=== PATIENT | female | born 1990 | race Two or more races ===

== ENCOUNTER → 2024-05-11 | Outpatient (REF) | payer OTHER | LOC: M PLALAB 10:14 | PROVIDERS: ATTEND Advanced Practice Midwife | DX: Z34.01 Encounter for supervision of normal first pregnancy, first trimester (principal) ==

== ENCOUNTER → 2024-05-11 | Outpatient (CLI) | payer OTHER ==
[2024-05-11 15:06] LABS: HEMATOCRIT 36.3 % (36.0-47.0); HEMOGLOBIN 12.4 g/dl (12.0-15.5); MEAN CORPUSCULAR HEMOGLOBIN 31.4 pg (27.0-33.0); MEAN CORPUSCULAR HGB CONC 34.2 g/dl (32.0-36.5); MEAN CORPUSCULAR VOLUME 91.9 fl (80.0-96.0); PLATELET COUNT, AUTOMATED 334 10^3/uL (150-450); RED BLOOD COUNT 3.95 10^6/uL (4.00-5.40); WHITE BLOOD COUNT 10.5 10^3/uL (4.0-10.0)
[2024-05-11 15:53] LABS: HIV 1&2 SCREEN NEGATIVE (NEGATIVE)
[2024-05-11 16:02] LABS: HEPATITIS C VIRUS ABY INDEX < 0.02 INDEX (<0.8)
[2024-05-11 16:22] LABS: GC DNA AMPLIFICATION NEGATIVE (NEGATIVE)
== END ==
LOC: M PLALAB 10:39
PROVIDERS: ATTEND Advanced Practice Midwife
DX: Z34.01 Encounter for supervision of normal first pregnancy, first trimester (principal)

== ENCOUNTER → 2024-07-29 | Outpatient (CLI) | payer OTHER ==
[2024-07-29 12:53] LABS: GLUCOSE CHALLENGE TEST 1 HOUR 143 MG/DL (LESS THAN 140); HEMATOCRIT 34.7 % (36.0-47.0); HEMOGLOBIN 11.4 g/dl (12.0-15.5); MEAN CORPUSCULAR HEMOGLOBIN 32.4 pg (27.0-33.0); MEAN CORPUSCULAR HGB CONC 32.9 g/dl (32.0-36.5); MEAN CORPUSCULAR VOLUME 98.6 fl (80.0-96.0); PLATELET COUNT, AUTOMATED 308 10^3/uL (150-450); RED BLOOD COUNT 3.52 10^6/uL (4.00-5.40); WHITE BLOOD COUNT 14.3 10^3/uL (4.0-10.0)
[2024-07-29 13:29] LABS: HIV 1&2 SCREEN NEGATIVE (NEGATIVE)
[2024-07-29 13:36] LABS: HEPATITIS C VIRUS ABY INDEX < 0.02 INDEX (<0.8)
[2024-07-29 14:48] LABS: GC DNA AMPLIFICATION NEGATIVE (NEGATIVE)
== END ==
LOC: M PLALAB 09:19
PROVIDERS: ATTEND Specialist
DX: Z34.02 Encounter for supervision of normal first pregnancy, second trimester (principal); Z3A.00 Weeks of gestation of pregnancy not specified

== ENCOUNTER → 2024-07-29 | Outpatient (CLI) | payer OTHER | LOC: M WHC 07:58 | PROVIDERS: ATTEND Obstetrics & Gynecology | DX: Z34.82 Encounter for supervision of other normal pregnancy, second trimester (principal); Z3A.24 24 weeks gestation of pregnancy ==

== ENCOUNTER → 2024-08-12 | Outpatient (CLI) | payer OTHER | LOC: M LAB 07:48 | PROVIDERS: ATTEND Specialist | DX: Z34.02 Encounter for supervision of normal first pregnancy, second trimester (principal) ==

== ENCOUNTER → 2024-08-28 | Outpatient (CLI) | payer OTHER | LOC: M WHC 14:51 | PROVIDERS: ATTEND Obstetrics & Gynecology | DX: Z34.02 Encounter for supervision of normal first pregnancy, second trimester (principal); Z3A.29 29 weeks gestation of pregnancy ==

== ENCOUNTER → 2024-10-12 | Outpatient (CLI) | payer OTHER | LOC: M RAD 10:55 | PROVIDERS: ATTEND Nurse Practitioner Family | DX: O24.410 Gestational diabetes mellitus in pregnancy, diet controlled (principal); Z3A.35 35 weeks gestation of pregnancy ==

== ENCOUNTER → 2024-10-22 | Outpatient (REF) | payer OTHER | LOC: M SFHCWAGY 17:10 | PROVIDERS: ATTEND Nurse Practitioner Family | DX: Z34.03 Encounter for supervision of normal first pregnancy, third trimester (principal) ==

== ENCOUNTER → 2024-10-22 | Outpatient (REF) | payer OTHER | LOC: M PLALAB 15:45 | PROVIDERS: ATTEND Nurse Practitioner Family | DX: Z53.20 Procedure and treatment not carried out because of patient's decision for unspecified reasons (principal) ==

== ENCOUNTER 2024-11-05 13:05 | Inpatient (IN) | payer OTHER ==
[2024-11-05] VITALS (13 sets, daily range): BP systolic 105–150; BP diastolic 69–102
[~2024-11-05] VITALS: Ht 142.2 cm; Wt 55.3 kg
[2024-11-05] MEDS ORDERED: PRENTAB9 PO (13:20)
[2024-11-05] MEDS ORDERED: CARBOPROST TROMETHAMINE 250 MCG/ML AMP IM PRN (14:00)
[2024-11-05] MEDS ORDERED: OXYTOCIN DRIP 30 UNITS in IV 1 EA IV PRN (14:00)
[2024-11-05] MEDS ORDERED: METHYLERGONOVINE MALEATE 0.2MG/ML 1ML VIAL IM PRN (14:00)
[2024-11-05] MEDS ORDERED: TRANEXAMIC ACID INJection 1,000 MG in NS 100 ML IV PRN (14:00)
[2024-11-05 15:38] LABS: HEMATOCRIT 39.6 % (36.0-47.0); HEMOGLOBIN 13.5 g/dl (12.0-15.5); MEAN CORPUSCULAR HEMOGLOBIN 32.1 pg (27.0-33.0); MEAN CORPUSCULAR HGB CONC 34.1 g/dl (32.0-36.5); MEAN CORPUSCULAR VOLUME 94.3 fl (80.0-96.0); PLATELET COUNT, AUTOMATED 271 10^3/uL (150-450); WHITE BLOOD COUNT 16.9 10^3/uL (4.0-10.0)
[2024-11-05] MEDS: LR 1,000 ML IV SCH (16:45)
[2024-11-05] MEDS: OXYTOCIN DRIP 30 UNITS in IV 1 EA IV SCH (16:45)
[2024-11-05] MEDS: LACTATED RINGER'S 1000 ML IV PRN (17:45)
[2024-11-05] MEDS ORDERED: NALOXONE INJ 0.4MG/1ML VIAL IV PRN (17:50)
[2024-11-05] MEDS ORDERED: LR 500 ML IV PRN (17:50)
[2024-11-05] MEDS ORDERED: ePHEDrine SULFATE 25 MG/5 ML(5MG/ML) SYRINGE IVP PRN (17:50)
[2024-11-05] MEDS ORDERED: ONDANSETRON 4MG 2ML VIAL IV PRN (17:50)
[2024-11-05] MEDS ORDERED: diphenhydrAMINE 50MG/ML VIAL IV PRN (17:50)
[2024-11-05] MEDS ORDERED: EPIDURAL/PCA KEYS XX PRN (17:50)
[2024-11-05] MEDS: FENTANYL/ROPIVACAINE/NACL BAG 100 ML EPIDURAL SCH (17:54)
[2024-11-05] MEDS ORDERED: ceFAZolin 2 GM/D5W 50 ML IV BAG As Ordered ONE (23:32)
[2024-11-05] MEDS ORDERED: AZITHROMYCIN INJ 500MG VIAL As Ordered ONE (23:33)
[2024-11-05] MEDS ORDERED: BICITRA 30ML SOLN UDC As Ordered ONE (23:34)
[2024-11-05] MEDS ORDERED: BICITRA 30ML SOLN UDC PO ONE (23:35)
[2024-11-05] MEDS ORDERED: AZITHROMYCIN INJ 500 MG, VIAL MATE ADAPTER 1 EACH in NS 250 ML IV ONE (23:35)
[2024-11-05] MEDS ORDERED: ceFAZolin SOD 2 GM in IV 1 EA IV ONE (23:35)
[2024-11-05] MEDS ORDERED: ONDANSETRON 4MG 2ML VIAL As Ordered ONE (23:56)
[2024-11-05] MEDS ORDERED: fentaNYL 100 MCG/2 ML INJECTION As Ordered ONE (23:56)
[2024-11-05] MEDS ORDERED: PHENYLephrine 500MCG 5ML (100MCG/ML) SYRINGE As Ordered ONE (23:56)
[2024-11-05] MEDS ORDERED: LIDOCAINE 2% W/EPINEPHRINE 20ML VIAL **PRES FREE As Ordered ONE (23:56)
[2024-11-05] MEDS ORDERED: OXYTOCIN 30UNITS IN 0.9% NaCl 500ML IV BAG As Ordered ONE (23:56)
[2024-11-06] MEDS ORDERED: dexmedeTOMIDine (4MCG/ML)200MCG/50ML BTL (PRECEDEX) As Ordered ONE (00:05)
[2024-11-06] MEDS ORDERED: MORPHINE PRES-FREE INJ 10 MG/10 ML VIAL As Ordered ONE (00:10)
[2024-11-06] MEDS ORDERED: KETOROLAC 60MG 2ML VIAL As Ordered ONE (00:15)
[2024-11-06] MEDS ORDERED: oxyCODONE 5MG TAB PO PRN ×3 (00:50→01:00)
[2024-11-06] MEDS ORDERED: **NOTE PATIENT COMMENT** MISC XX SCH (00:50)
[2024-11-06] MEDS ORDERED: PERCOCET 5MG/325MG TAB PO PRN (00:50)
[2024-11-06] MEDS ORDERED: NALOXONE INJ 0.4MG/1ML VIAL IV PRN ×2 (00:50)
[2024-11-06] MEDS ORDERED: diphenhydrAMINE 50MG/ML VIAL IV PRN (00:50)
[2024-11-06] MEDS ORDERED: fentaNYL 100 MCG/2 ML INJECTION IV PRN (00:50)
[2024-11-06] MEDS ORDERED: MEPERIDINE 25 MG/ML 1ML VIAL IV PRN (00:50)
[2024-11-06] MEDS ORDERED: METOCLOPRAMIDE INJ 10MG/2ML VIAL IV PRN ×3 (00:50→01:00)
[2024-11-06] MEDS: SLF 3 ML SYR IV SCH (00:50)
[2024-11-06] MEDS ORDERED: ONDANSETRON 4MG 2ML VIAL IV PRN ×2 (00:50→01:00)
[2024-11-06] MEDS ORDERED: RHOGAM 300MCG (1500IU) INJ IM SCH (01:00)
[2024-11-06] MEDS ORDERED: DOCUSATE SODIUM 100MG CAPSULE PO PRN (01:00)
[2024-11-06] MEDS: OXYTOCIN DRIP 30 UNITS in IV 1 EA IV SCH (01:07)
[2024-11-06 01:09] LABS: CORD GAS HCO3 A 25.3 MMOL/L; CORD GAS O2 SAT A 29.6 %; CORD GAS PH A 7.297 UNITS; CORD GAS PO2 A 15.3 mmHg; CORD GAS SBC A 21.1 MMOL/L; CORD GAS TCO2 A 26.9 MMOL/L
[2024-11-06 01:10] LABS: CORD GAS ABE V -4.4; CORD GAS HCO3 V 21.3 MMOL/L; CORD GAS O2 SAT V 61.4 %; CORD GAS PCO2 V 41.5 mmHg; CORD GAS PH V 7.328 UNITS; CORD GAS TCO2 V 22.6 MMOL/L
[2024-11-06 02:23] VITALS: BP 97/63; O2SAT 95
[2024-11-06] MEDS: ACETAMINOPHEN 500 MG TAB PO SCH (02:48)
[2024-11-06] MEDS: KETOROLAC 30 MG/ML 1ML VIAL IV SCH (05:46)
[2024-11-06] MEDS: LR 1,000 ML IV SCH (05:47)
[2024-11-06 05:50] VITALS: BP 100/60; O2SAT 97
[2024-11-06] MEDS ORDERED: COLA100C5 PO (08:21)
[2024-11-06] MEDS ORDERED: ACET-683 PO (08:21)
[2024-11-06] MEDS ORDERED: OXYC-517 PO (08:21)
[2024-11-06] MEDS ORDERED: IBUP-1022 PO (08:21)
[2024-11-06] MEDS: PRENATAL VITAMINS CHEWABLE TABLET PO SCH (08:26)
[2024-11-06] MEDS: SIMETHICONE 80MG CHEW TAB PO PRN (08:26)
[2024-11-06 10:00] VITALS: BP 100/53; O2SAT 98
[2024-11-06] MEDS ORDERED: NIFEdipine 10 MG CAP PO ONE (12:25)
[2024-11-06 14:00] VITALS: BP 91/53; O2SAT 99
[2024-11-06 18:00] VITALS: BP 112/65; O2SAT 100
[2024-11-06 21:56] VITALS: BP 108/65; O2SAT 99
[2024-11-06] MEDS: IBUPROFEN 600MG TAB PO SCH (23:36)
[2024-11-07 02:00] VITALS: BP 104/65; O2SAT 99
[2024-11-07 06:00] VITALS: BP 105/59; O2SAT 99
[2024-11-07 06:33] LABS: HEMATOCRIT 28.7 % (36.0-47.0); HEMOGLOBIN 9.5 g/dl (12.0-15.5); MEAN CORPUSCULAR HEMOGLOBIN 32.3 pg (27.0-33.0); MEAN CORPUSCULAR HGB CONC 33.1 g/dl (32.0-36.5); MEAN CORPUSCULAR VOLUME 97.6 fl (80.0-96.0); PLATELET COUNT, AUTOMATED 202 10^3/uL (150-450); RED BLOOD COUNT 2.94 10^6/uL (4.00-5.40); WHITE BLOOD COUNT 11.2 10^3/uL (4.0-10.0)
[2024-11-07 09:15] VITALS: BP 105/59; TEMP 98.4; O2SAT 99
[2024-11-07 09:48] VITALS: BP 148/81; O2SAT 98
[2024-11-07 18:00] VITALS: BP 140/78; O2SAT 99
[2024-11-07 21:50] VITALS: BP 110/70; O2SAT 99
[2024-11-08 05:39] VITALS: BP 107/71; O2SAT 99
[2024-11-08] MEDS: MEASLES,MUMPS,RUBELLA VACCINE INJ (MMR-II) SC.IMMUN ONE (09:00)
[2024-11-08] MEDS ORDERED: IBUP-1022 PO (14:28)
== END 2024-11-08 13:50 | disposition home or self-care (01) | DRG 540 ==
LOC: M LDO 13:05 → M LDI 13:35 → M OBS 11-06 02:12
PROVIDERS: ADMIT Obstetrics & Gynecology; ATTEND Obstetrics & Gynecology
PROC: 10D00Z1 Extraction of Products of Conception, Low, Open Approach (ICD-10-PCS; principal; 2024-11-05 23:18)
DX: O32.4XX0 Maternal care for high head at term, not applicable or unspecified (principal); O77.1 Fetal stress in labor or delivery due to drug administration; Z37.0 Single live birth; Z3A.38 38 weeks gestation of pregnancy

== ENCOUNTER → 2025-03-18 | Outpatient (REF) | payer OTHER ==
[~2025-03-18] MED LIST: ACET-683 PO; COLA100C5 PO; IBUP-1022 PO; OXYC-517 PO; PRENTAB9 PO
[2025-03-21 08:32] LABS: HPV APTIMA Not Detected (Not Detected)
== END ==
LOC: M SFHCWAGY 10:39
PROVIDERS: ATTEND Obstetrics & Gynecology
DX: Z12.4 Encounter for screening for malignant neoplasm of cervix (principal)

== ENCOUNTER → 2025-09-03 | Outpatient (REF) | payer OTHER ==
[~2025-09-03] MED LIST changes: -IBUP-1022 PO; +IBUP600T42 PO
== END ==
LOC: M PLALAB 15:36
PROVIDERS: ATTEND Physician Assistant
DX: N61.1 Abscess of the breast and nipple (principal)

== ENCOUNTER → 2025-09-03 | Outpatient (CLI) | payer OTHER | LOC: M WHC 15:24 | PROVIDERS: ATTEND Physician Assistant | DX: N61.1 Abscess of the breast and nipple (principal) ==

== ENCOUNTER → 2025-09-13 | Outpatient (CLI) | payer OTHER | LOC: M WHC 13:11 | PROVIDERS: ATTEND Surgery | DX: N61.1 Abscess of the breast and nipple (principal) ==

== ENCOUNTER → 2025-10-13 | Outpatient (CLI) | payer OTHER ==
[2025-10-13 10:56] VITALS: TEMP 98.4
[2025-10-13 11:27] VITALS: BP 122/88; O2SAT 100
== END ==
LOC: M WHCPRO 10:34
PROVIDERS: ATTEND Surgery
DX: O91.13 Abscess of breast associated with lactation (principal)